=== PATIENT | male | born 2000 | race Caucasian/White ===

== ENCOUNTER 2018-01-30 23:25 | Emergency (ER) | payer BC, SELFPAY ==
[2018-01-30 23:27] VITALS: BP 131/77; PULSE 80; RESP 18; TEMP 36.3; O2SAT 97; BMI 22.3
[2018-01-31 00:19] LABS: Amphetamine Urine VISTA NEGATIVE (<1000 ng/mL); Barbiturate Urine VISTA NEGATIVE (< 200 ng/mL); Benzodiazepine Urine VISTA NEGATIVE (< 200 ng/mL); Cocaine Urine VISTA NEGATIVE (< 300 ng/mL); Ecstacy Urine VISTA NEGATIVE (< 500 ng/mL); Methadone Urine VISTA NEGATIVE (< 300 ng/mL); PCP Urine VISTA NEGATIVE (< 25 ng/mL); THC Urine VISTA NEGATIVE (< 50 ng/mL); Vista UDS pH Range 7
[2018-01-31 00:20] LABS: Absolute Lymphocyte Count 1.48 X10^3/ul (0.83-4.51); Basophil# 0.02 X10^3/uL; Basophil% 0.2 % (0-1); Eosinophil# 0.09 X10^3/uL; Eosinophils% 0.9 % (0-5); Hemoglobin 14.2 g/dl (13.0-16.5); Lymphocyte # 1.48 X10^3/ul (4.0); Lymphocyte % 14.6 % (19-41); Mean Corp Hgb Conc 33.8 g/gl (32-36); Mean Corpuscular Hgb 27.6 pg (27.0-32.0); Mean Corpuscular Volume 81.6 fL (80-94); Mean Platelet Vol. 11.5 fl (6.2-12.0); Monocyte% 4.9 % (0-10); Neutrophil # 8.03 X10^3/uL (2.7-7.7); Neutrophil % 79.2 % (47-70); Platelet Count 215 K/mm3 (150-450); RBC Distribution Width CV 12.8 % (11.6-14.6); RBC Distribution Width SD 37.7 fl (35.1-43.9); Red Blood Count 5.15 M/mm3 (4.6-6.2); White Blood Count 10.1 K/mm3 (4.4-11.0)
[2018-01-31 00:21] LABS: POSITIVE COUNT NO; POSITIVE DIFFERENTIAL NO; POSITIVE MORPHOLOGY NO
[2018-01-31 00:28] LABS: Alcohol, Blood (Medical)-Serum < 3.0 mg/dL
[2018-01-31 00:30] LABS: Anion Gap 6 (5-15); BUN 12 mg/dL (7-18); BUN/Creat Ratio 12.9 RATIO (10-20); Calcium,Total 8.9 mg/dL (8.5-10.1); Chloride 107 mmol/L (98-107); Creatinine, Serum 0.93 mg/dL (0.70-1.30); EST Glomerular Filtration Rate 111 mL/min (>60); Est Glom Filt Rate - Afr Amer 134 mL/min (>60); Estimated Creatinine Clearance 146.37 ml/min; Glucose 138 mg/dL (74-106); Potassium 3.3 mmol/L (3.5-5.1); Sodium Level 139 mmol/L (136-145)
--- NOTE | 2018-01-31 00:47 | ED.DCSUM_ITS ---
History of Present Illness Chief Complaint: Suicidal Informant: Patient Onset: Today Current Severity: Moderate Maximum Severity: Moderate Narrative: Patient apparently was waving a knife around at some points and got into some legal trouble with that, and now scheduled for a court date. He considered suicide because of all of these issues in conjunction with depression and the fact that now he has to go to court. He does not have a plan. He was pink slipped to the ER by police because of this. Patient states that he is having thoughts of self-harm, but states he does not think he would be able to do it for multiple reasons, stating that he has good friends that would be upset and Ms. him, that he does not think he could do that to his mom who already had a child , and that his religious forbids it, and he does not want to go to help. He has a history of depression, he is not on medication for it did he is currently in college locally. He has had suicidal thoughts in the past but never any attempt. He has been eating and sleeping okay, and denies any recent illnesses or injuries, including self injuries. No homicidal ideation, hallucinations, delusions. He does not use any drugs or smoke or drink alcohol. - Past Medical History (1) Depression Status: Chronic Past Medical History - Allergies and Home Meds Allergies/Adverse Reactions: Allergies No Known Allergies Allergy (Verified 01/30/18 23:27) Primary Care Physician: Jamey Deluca,Out of [Primary Care Provider] - Smoking Status: Never smoker Alcohol: None Drugs: None Review of Systems General: Denies: Chills, Fever, Sweats Eyes: Denies: Visual changes - bilaterally, Diplopia ENT: Reports: Rhinorrhea. Denies: Bilateral ear pain, Sore throat Cardiovascular: Denies: Chest pain, Palpitations, Heart racing Respiratory: Denies: Dyspnea, Cough, Dyspnea on exertion Gastrointestinal: Denies: Abdominal pain, Nausea, Vomiting, Diarrhea, Melena, Hematochezia Genitourinary: Denies: Dysuria, Hematuria, Frequency Musculoskeletal: Reports: Extremity Pain - occasional leg cramps. Denies: Neck pain, Back pain Skin: Denies: Rash, Abrasions, Wounds Neurological: Denies: Headache, Weakness, Numbness Psych: Reports: Depression, Suicidal thoughts Allergy: Denies: Swelling of the mouth, Swelling of the tongue Physical Exam Vital Signs/Narrative: Vital Signs Temp Pulse Resp BP Pulse Ox 01/30/18 23:27 97.3 F L 80 18 131/77 H 97 Diagnostic/Tx/Re-eval Laboratory Tests 01/30/18 01/30/18 01/30/18 Range/Units 23:44 23:43 23:43 WBC (4.4-11.0) K/mm3 RBC (4.6-6.2) M/mm3 Hgb (13.0-16.5) g/dl Hct (40-54) % MCV (80-94) fL MCH (27.0-32.0) pg MCHC (32-36) g/gl RDW (11.6-14.6) % RDW Differential (35.1-43.9) fl Plt Count (150-450) K/mm3 MPV (6.2-12.0) fl Immature Gran % (Auto) (0.0-0.9) % Neut % (Auto) (47-70) % Lymph % (Auto) (19-41) % [place] % (Auto) (0-10) % Eos % (Auto) (0-5) % Baso % (Auto) (0-1) % Absolute Neuts (auto) (2.0-7.7) X10^3/uL Absolute Lymphs (auto) (0.83-4.51) X10^3/ul Total Counted Sodium 139 (136-145) mmol/L Potassium 3.3 L (3.5-5.1) mmol/L Chloride 107 (98-107) mmol/L Carbon Dioxide 26.0 (21.0-32.0) mmol/L Anion Gap 6 (5-15) BUN 12 (7-18) mg/dL Creatinine 0.93 (0.70-1.30) mg/dL Estim Creat Clear Calc 146.37 ml/min Est GFR (MDRD) Af Amer 134 (>60) mL/min Est GFR (MDRD) Non-Af 111 (>60) mL/min BUN/Creatinine Ratio 12.9 (10-20) RATIO Glucose 138 H (74-106) mg/dL Calcium 8.9 (8.5-10.1) mg/dL Urine Opiates Screen NEGATIVE (< 300 ng/mL) Urine Methadone Screen NEGATIVE (< 300 ng/mL) Ur Barbiturates Screen NEGATIVE (< 200 ng/mL) Ur Phencyclidine Scrn NEGATIVE (< 25 ng/mL) Ur Amphetamines Screen NEGATIVE (<1000 ng/mL) U Methamphetamin-MDMA NEGATIVE (< 500 ng/mL) U Benzodiazepines Scrn NEGATIVE (< 200 ng/mL) Urine Cocaine Screen NEGATIVE (< 300 ng/mL) U Cannabinoids Screen NEGATIVE (< 50 ng/mL) Ur Drug Screen Comment Ethyl Alcohol < 3.0 mg/dL 01/30/18 Range/Units 23:43 WBC 10.1 (4.4-11.0) K/mm3 RBC 5.15 (4.6-6.2) M/mm3 Hgb 14.2 (13.0-16.5) g/dl Hct 42.0 (40-54) % MCV 81.6 (80-94) fL MCH 27.6 (27.0-32.0) pg MCHC 33.8 (32-36) g/gl RDW 12.8 (11.6-14.6) % RDW Differential 37.7 (35.1-43.9) fl Plt Count 215 (150-450) K/mm3 MPV 11.5 (6.2-12.0) fl Immature Gran % (Auto) 0.200 (0.0-0.9) % Neut % (Auto) 79.2 H (47-70) % Lymph % (Auto) 14.6 L (19-41) % [place] % (Auto) 4.9 (0-10) % Eos % (Auto) 0.9 (0-5) % Baso % (Auto) 0.2 (0-1) % Absolute Neuts (auto) 8.0 H (2.0-7.7) X10^3/uL Absolute Lymphs (auto) 1.48 (0.83-4.51) X10^3/ul Total Counted Not Reportable Sodium (136-145) mmol/L Potassium (3.5-5.1) mmol/L Chloride (98-107) mmol/L Carbon Dioxide (21.0-32.0) mmol/L Anion Gap (5-15) BUN (7-18) mg/dL Creatinine (0.70-1.30) mg/dL Estim Creat Clear Calc ml/min Est GFR (MDRD) Af Amer (>60) mL/min Est GFR (MDRD) Non-Af (>60) mL/min BUN/Creatinine Ratio (10-20) RATIO Glucose (74-106) mg/dL Calcium (8.5-10.1) mg/dL Urine Opiates Screen (< 300 ng/mL) Urine Methadone Screen (< 300 ng/mL) Ur Barbiturates Screen (< 200 ng/mL) Ur Phencyclidine Scrn (< 25 ng/mL) Ur Amphetamines Screen (<1000 ng/mL) U Methamphetamin-MDMA (< 500 ng/mL) U Benzodiazepines Scrn (< 200 ng/mL) Urine Cocaine Screen (< 300 ng/mL) U Cannabinoids Screen (< 50 ng/mL) Ur Drug Screen Comment Ethyl Alcohol mg/dL - Medical Decision Making Labs and toxicology are normal. He is medically cleared. To be assessed by crisis further. Evaluated fully by crisis. They agree he is examining very well and really he was just afraid of the consequences at school with regards to the fact that he has to go to court for a legal issue. He contracts for safety and will follow up with counselor at the school and counseling center here in [place]. I am agreeable with this plan. ED Disposition - Plan for ED Patient: Disposition: Home or Assisted Living Chief Complaint: Suicidal Diagnosis: Suicidal thoughts, Depression, Reaction, situational, acute, to stress Instructions: ED Contract, No Harm, ED Depression Referrals: Counseling,Center [GROUP OF PHYSICIANS] - (Call for appointment)
[2018-01-31 01:04] VITALS: RESP 16
[2018-01-31 02:24] VITALS: RESP 16
[2018-01-31 03:07] VITALS: BP 126/85; PULSE 78; RESP 16; O2SAT 98
== END 2018-01-31 03:08 | disposition home or self-care (01) ==
PROVIDERS: Emergency Provider Emergency Medicine
DX: R45.851 Suicidal ideations (principal); F32.9 Major depressive disorder, single episode, unspecified; F43.0 Acute stress reaction; J34.89 Other specified disorders of nose and nasal sinuses; R25.2 Cramp and spasm
CPT/HCPCS: 36415; 80048; 80307; 80320; 85025; 99285; G0480